=== PATIENT | male | born 1960 | race Caucasian/White ===

== ENCOUNTER → 2018-07-27 | Outpatient (CLI) | payer OTHER ==
[~2018-07-27] MED LIST: GADOBENATE DIMEGLUMINE 1 ML IV ONE; Z LAMICTAL
[2018-07-27 14:49] LABS: CREATININE, SERUM 1.37 mg/dL (0.72-1.25)
--- NOTE | 2018-07-27 17:08 | Diagnostic Imaging Report ---
MRI BRAIN WOW HISTORY: Seizure COMPARISON: MRI of the brain 08/06/2013, MRI of the brain 11/21/2011 TECHNIQUE: Multiplanar, multisequence MRI of the brain (including diffusion-weighted imaging) was performed before and after the administration of intravenous, gadolinium based contrast. Complete diffusion weighted image series was reviewed on [employer] system. 20 mL of MultiHance were administered. Noise artifacts obscure some details. DISCUSSION: Scalp/bone marrow: Unremarkable. Brain sulci: Appropriate for patient's age. Ventricles: Normal in size and configuration. No hydrocephalus. Extra-axial spaces: No masses or fluid collections. Parenchyma: Subtle focal fullness of the left uncus has not significantly changed; once again, this area is isointense to cortex. The hippocampal structures, fornices, and mamillary bodies are grossly unremarkable. Otherwise, no additional mass, hemorrhage, or acute vascular insults. No abnormal parenchymal, leptomeningeal, or dural enhancement is seen. Vessels: Normal flow voids in major arteries and veins. Sellar/Suprasellar region: No abnormalities. Craniocervical junction: No abnormalities. Incidental findings: There is a small retention cyst or polyp in the left maxillary sinus. IMPRESSION: 1. No acute intracranial abnormalities. 2. 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 Signed by: Dr. Luis Lawrence M.D. on 07/27/2018 5:05 PM
== END ==
LOC: MRI 13:54
PROVIDERS: ATTEND Psychiatry & Neurology Neurology
DX: G40.209 Localization-related (focal) (partial) symptomatic epilepsy and epileptic syndromes with complex partial seizures, not intractable, without status epilepticus (principal)
CPT/HCPCS: 36415; 70553; 82565; 84520; A9577